=== PATIENT | female | born 1945 ===

== ENCOUNTER 2016-10-22 11:45 | Day surgery (SDC) | payer MEDICARE ==
[2016-10-15 13:10] VITALS: BMI 16.4
[2016-10-22 12:08] LABS: ADD MANUAL DIFF? NO
[2016-10-22 12:18] LABS: BASO # 0.02 K/mm3 (0.0-2.0); BASO % 0.3 % (0.0-3.0); EOS % 0.3 % (1.5-5.0); GRAN # 5.19 (1.4-6.5); GRAN % 76.3 % (50.0-68.0); HEMATOCRIT 31.5 % (36.0-48.0); LYMPH % 15.3 % (22.0-35.0); MEAN CELL VOLUME 89.2 fL (80.0-105.0); MEAN CORPUSCULAR HEMOGLOBIN 29.2 pg (25.0-35.0); MEAN CORPUSCULAR HGB CONC 32.7 g/dl (31.0-37.0); MEAN PLATELET VOLUME 7.7 fl (7.0-11.0); MONO # 0.5 (0.1-0.6); MONO % 7.8 % (1.0-6.0); PLATELET COUNT 444 10^3/uL (120.0-450.0); RED CELL DISTRIBUTION WIDTH 15.7 % (11.5-14.5); WHITE BLOOD COUNT 6.8 10^3/ul (4.5-11.0)
[2016-10-22 12:31] LABS: BLOOD UREA NITROGEN 14 mg/dL (7-21); CALCIUM 7.7 mg/dL (8.4-10.5); CARBON DIOXIDE 36 mmol/L (21-33); CHLORIDE 98 mmol/L (98-107); GFR AFRICAN-AMERICAN > 60; GLUCOSE,RANDOM 79 mg/dL (70-110); SODIUM 135 mmol/L (132-148)
--- NOTE | 2016-10-22 12:39 | CP.SDSHP ---
Same Day Surgery H & P - History Proposed Procedure: insertion of venous port. Pre-Op Diagnosis: colon ca and liver mass. - Previous Medical/Surgical History Cardiac: Hypertension Misc: Anemia, Other (liver mass.) Previous Surgical History: colon resection. - Allergies Allergies: Allergies No Known Allergies Allergy (Verified 12/26/14 07:30) - Physical Exam General Appearance: asthenic. Vital Signs: Vital Signs 10/22/16 12:00 Temperature 97.9 F Pulse Rate 73 Respiratory 18 Rate Blood Pressure 142/87 O2 Sat by Pulse 93 L Oximetry Mental Status: Alert & Oriented x3 Neuro: WNL Heart: WNL Lungs: Other (decreased breath sounds bilaterally.) GI: WNL - Impression Impression: colon ca with liver mass. - Date & Time Date: 10/22/16 Time: 12:39 Short Stay Discharge - Short Stay Discharge Admitting Diagnosis/Reason for Visit: COLON CA C20 Disposition: HOME/ ROUTINE Referrals: Horace Narayanan MD [Primary Care Provider] -
[2016-10-22 13:02] LABS: INR 1.04 (0.93-1.08)
[2016-10-22] MEDS ORDERED: Lidocaine 2% Inj (20ml) ONE (13:23)
[2016-10-22] MEDS ORDERED: Midazolam 2 MG/2 ML VIAL ONE (14:46)
[2016-10-22] MEDS ORDERED: Oxycodone/Acetaminophen 5/325 mg Tab PO PRN (15:30)
[2016-10-22] MEDS ORDERED: Sodium Chloride 0.45% 1,000 ML IV SCH (15:30)
[2016-10-22 15:52] VITALS: TEMP 97
--- NOTE | 2016-10-22 17:37 | VASCULAR ---
PROCEDURE: Ultrasound and fluoroscopic right internal jugular venous access port. CLINICAL HISTORY: Metastatic colorectal carcinoma.Venous port for chemotherapy. PHYSICIAN(S): Dawood Britton M.D. TECHNIQUE: The relative risks and indications of the procedure were explained to the patient and consent obtained. The patient was placed supine on the arteriogram table and the right neck and chest prepped and draped in the usual sterile fashion. Conscious sedation monitoring was provided throughout the procedure by a nurse. Antibiotics were given prior to the procedure. Under direct ultrasound guidance, the right internal jugular vein was punctured with a micro-puncture set. A 0.035 angled Glidewire was advanced into the IVC. A 4 cm incision was made below the right clavicle and the pocket blunted dissected. A 8 [place] single-lumen catheter, 22 cm long, was advanced to the SVC/RA junction. The catheter was trimmed and attached to the port. The port aspirates and injects easily. The port was placed in the pocket and closed in 2 layers. The patient tolerated the procedure well. IMPRESSION: Ultrasound and fluoroscopically placed right internal jugular venous access port.
[2016-10-22 17:41] VITALS: RESP 20; O2SAT 99
[2016-10-22 18:05] VITALS: BP 156/94; PULSE 69
== END 2016-10-22 18:05 | disposition home or self-care (01) ==
LOC: SDSVAS 11:45
PROVIDERS: ATTEND Radiology Vascular & Interventional Radiology
DX: C20 Malignant neoplasm of rectum (principal); R16.0 Hepatomegaly, not elsewhere classified; I10 Essential (primary) hypertension; D64.9 Anemia, unspecified
CPT/HCPCS: 36415; 36561; 76937; 77001; 80048; 85025; 85610; 85730; 99152; C1769; C1788; J0690; J1644; J2250; J2405; J3010; J7030